=== PATIENT | female | born 2000 | race African-American/Black ===

== ENCOUNTER 2022-11-23 20:06 | Emergency (ER) | payer OTHER ==
[2022-11-23 20:12] VITALS: BP 119/76; PULSE 81; RESP 17; TEMP 98.1; BMI 37.1
== END 2022-11-23 21:11 | disposition home or self-care (01) ==
LOC: JERFT 20:06
DX: S93.401A Sprain of unspecified ligament of right ankle, initial encounter (principal); M25.571 Pain in right ankle and joints of right foot; M25.471 Effusion, right ankle; W01.0XXA Fall on same level from slipping, tripping and stumbling without subsequent striking against object, initial encounter; Y93.89 Activity, other specified; Y92.009 Unspecified place in unspecified non-institutional (private) residence as the place of occurrence of the external cause
CPT/HCPCS: 73610-TC-RT-FY; 73630-TC-RT-FY; 99283-25